=== PATIENT | female | born 1990 | race Caucasian/White ===

== ENCOUNTER 2016-07-11 19:35 | Emergency (ER) | payer MEDICAID, OTHER ==
[2016-07-11] MEDS ORDERED: MORPHINE SULFATE 5 MG/ML PFS IVP ONE (19:55)
[2016-07-11] MEDS ORDERED: ONDANSETRON HCL IV 4 MG/2 ML VIAL IVP ONE (19:55)
[2016-07-11] MEDS ORDERED: METHYLPREDNISOLONE PF 125MG/VIAL IVP STA (19:59)
[2016-07-11] MEDS ORDERED: KETOROLAC 30 MG/ML VIAL IVP ONE (19:59)
--- NOTE | 2016-07-11 20:00 | Emergency Department Record ---
History of Present Illness - General Chief Complaint: Back Pain/Injury Stated Complaint: LOWER BACK PAIN Time Seen by Provider: 07/11/16 19:48 Source: Patient Mode of Arrival: Ambulatory Limitations: No limitations - History of Present Illness Initial Comments: 25 yo female presents with lower back pain for about 3 days. The pain is mostly on the left and radiates down the leg. No weakness. No changes in bowel bladder changes. No numbness. No history of back surgery, fever, IVDA, cancer, immune suppression. She has been doing more lifting and bending lately. The pain is sharp and starts in the left glutteal area radiating down the mostly the left thigh. The pain is worse with standing. She tried other individuals medications without relief. No current PCP. MD Complaint: Back pain Onset/Timin -: Days(s) Similar Symptoms Previously: Yes Radiation: Left leg, Right leg Severity scale (1-10): 10 Quality: Sharp, Tingling Consistency: Constant, Getting worse Improves With: Supine Worsens With: Movement Context: Bending, Turning/twisting, While lifting Treatments Prior to Arrival: Cold therapy, Heat therapy, NSAIDS - Related Data Previous Rx's Medication Instructions Recorded Cyclobenzaprine HCl [Flexeril] 10 mg PO TID #15 tablet 07/11/16 Hydrocodone/Acetaminophen [Cade 1 tab PO Q6H PRN #15 tab 07/11/16 5mg/325mg] Methylprednisolone [Medrol Dose 0 mg PO UD #1 tab.ds.pk 07/11/16 Pack] Naproxen [Naprosyn] 500 mg PO Q12H #30 tab 07/11/16 Allergies Allergy/AdvReac Type Severity Reaction Status Date / Time No Known Drug Allergies Allergy Verified 02/04/16 22:19 Travel Screening - Travel/Exposure Within Last 30 Days Have you traveled within the last 30 days?: No - Travel Symptoms Symptom Screening: None Review of Systems Constitutional: Denies: Chills, Fever, Malaise, Weakness Eyes: Denies: Eye discharge ENT: Denies: Congestion, Throat pain Respiratory: Denies: Cough, Dyspnea Cardiovascular: Denies: Chest pain, Palpitations, Syncope Endocrine: Denies: Fatigue Gastrointestinal: Denies: Abdominal pain, Diarrhea, Nausea, Vomiting Genitourinary: Denies: Dysuria, Incontinence, Retention, Urgency Musculoskeletal: Reports: As per HPI, Back pain, Myalgia Skin: Denies: Bruising, Change in color, Rash Neurological: Denies: Headache Psychiatric: Denies: Anxiety Hematological/Lymphatic: Denies: Blood Clots, Easy bleeding, Easy bruising, Swollen glands Past Medical History - SOCIAL HISTORY Smoking Status: Never smoker - RESPIRATORY Hx Respiratory Disorders: No - CARDIOVASCULAR Hx Cardio Disorders: No - NEURO Hx Neuro Disorders: No - GI Hx GI Disorders: No - Hx Genitourinary Disorders: No - ENDOCRINE Hx Endocrine Disorders: No - MUSCULOSKELETAL Hx Musculoskeletal Disorders: No - PSYCH Hx Psych Problems: Yes Hx Anxiety: Yes Hx Depression: Yes - HEMATOLOGY/ONCOLOGY Hx Hematology/Oncology Disorders: No Family Medical History Any Significant Family History?: Yes Hx Liver Disease: Grandparents Physical Exam - General General Appearance: Alert, Oriented x3, Cooperative, No acute distress Limitations: No limitations - Head Head exam: Normal inspection - Eye Eye exam: Normal appearance, PERRL. negative: Conjunctival injection - ENT ENT exam: Normal exam - Neck Neck exam: Normal inspection, Full ROM. negative: Tenderness - Respiratory Respiratory exam: Normal lung sounds bilaterally. negative: Accessory muscle use, Decreased breath sounds, Prolonged expiratory, Respiratory distress, Rhonchi, Stridor, Wheezes - Cardiovascular Cardiovascular Exam: Regular rate, Normal rhythm, Normal heart sounds Peripheral Pulses: 2+: Radial (R), Radial (L) - GI/Abdominal GI/Abdominal exam: Soft. negative: Distended, Guarding, Rebound, Tenderness - Rectal Rectal exam: Deferred - exam: Deferred - Extremities Extremities exam: Normal inspection, Full ROM, Normal capillary refill. negative: Calf tenderness, Joint swelling, Pedal edema, Tenderness - Back Back exam: Reports: Normal inspection, Muscle spasm, Tenderness, Vertebral tenderness. Denies: CVA tenderness (R), CVA tenderness (L), Full ROM, Rash noted Image of Body Front/Back: 1 - tender to palpation in the left lower lumbar, no rash, swelling, redness or warmth. Negative bilateral straight leg, EHL intact bilateral, foot flexion and extension intact bilateral, knee flexion and extension intact bilateral - Neurological Neurological exam: Alert, Normal gait, Oriented X3, Reflexes normal (patellar and achilles symmetric and intact). negative: Altered, Motor sensory deficit - Psychiatric Psychiatric exam: Normal affect, Normal mood. negative: Agitated, Anxious - Skin Skin exam: Dry, Intact, Normal color, Warm Course Vital Signs 07/11/16 19:45 Temperature 98.4 F Pulse Rate [ 116 H Pulse Ox Probe] Respiratory 20 Rate Blood Pressure 137/113 [Left Arm] Pulse Ox 96 - Reevaluation(s) Reevaluation #1: History likely consistent with sciatica No weakness or sensory changes No changes to bowel or bladder function 07/11/16 20:04 Reevaluation #2: The UCG is negative Nitrite and LE negative. No WBC or Bacteria. 07/11/16 20:31 Reevaluation #3: On recheck the patient is feeling much improved We discussed follow up and reasons to return to the ED' She was referred to the [facility] 07/11/16 20:34 Disposition Disposition: Discharge Clinical Impression: Sciatica Qualifiers: Laterality: left Qualified Code(s): M54.32 - Sciatica, left side Disposition: Home, Self-Care Condition: (1) Good Instructions: Low Back Strain (ED), Sciatica (ED) Additional Instructions: Rest and avoid lifting and bending Return or seek medical attention if worse, fever, weak, numb or new concerns Prescriptions: Cyclobenzaprine HCl [Flexeril] 10 mg PO TID #15 tablet Methylprednisolone [Medrol Dose Pack] 0 mg PO UD #1 tab.ds.pk Naproxen [Naprosyn] 500 mg PO Q12H #30 tab.dr Hydrocodone/Acetaminophen [Cade 5mg/325mg] 1 tab PO Q6H PRN #15 tab PRN Reason: Pain - General Referrals: CARLOS MANUEL FARIAS M.D. [MEDICAL DOCTOR] - Forms: Patient Portal Access
[2016-07-11 20:12] LABS: URINE APPEARANCE CLEAR; URINE BILIRUBIN SMALL (NEGATIVE); URINE BLOOD TRACE-I (NEGATIVE); URINE COLOR YELLOW; URINE GLUCOSE (UA) NEGATIVE (NEGATIVE); URINE KETONE NEGATIVE (NEGATIVE); URINE LEUKOCYTE ESTERASE NEGATIVE (NEGATIVE); URINE NITRITE NEGATIVE (NEGATIVE); URINE PROTEIN TRACE (NEGATIVE)
[2016-07-11 20:19] LABS: HCG,QUALITATIVE URINE NEGATIVE (NEGATIVE); URINE BACTERIA FEW; URINE RBC 0 - 2 (NONE SEEN); URINE WBC 0 - 2 (0-2/hpf)
== END 2016-07-11 20:59 | disposition home or self-care (01) ==
LOC: ER 19:35
DX: M54.42 Lumbago with sciatica, left side (principal)
CPT/HCPCS: 99284 ×2; 96374; 96375; 81001; 81025; J1885; J2405; J2270; J2930

== ENCOUNTER 2017-07-18 22:13 | Emergency (ER) | payer MEDICAID ==
[2017-07-18] MEDS ORDERED: AZITHROMYCIN 500 MG TABLET PO ONE (22:26)
[2017-07-18] MEDS ORDERED: PREDNISONE 20 MG TAB PO ONE (22:26)
[2017-07-18] MEDS ORDERED: BENZONATATE 100 MG CAPSULE PO ONE (22:26)
--- NOTE | 2017-07-18 22:30 | Emergency Department Record ---
History of Present Illness - General Chief Complaint: Cough Stated Complaint: COUGH,PAIN WHEN BREATHING Time Seen by Provider: 07/18/17 22:20 Source: Patient Mode of Arrival: Ambulatory Limitations: No limitations - History of Present Illness Initial Comments: 26 yo female presents to ED for evaluation of intermittent cough symptoms for the past 1 month. Patient denies fever, sore throat, or history of asthma/COPD , patient denies health problems at her baseline. MD Complaint: Cough Onset/Timin -: Month(s) Severity: Moderate Quality: Aching Consistency: Intermittent Improves With: Nothing Worsens With: Deep breaths, Other (laying flat) Associated Symptoms: Denies other symptoms Treatments Prior to Arrival: None - Related Data Previous Rx's Medication Instructions Recorded Azithromycin [Zithromax] 250 mg PO DAILY #4 tab 07/18/17 Benzonatate [Tessalon] 2 cap PO Q8H PRN #20 cap 07/18/17 Prednisone [Prednisone 20Mg] 20 mg PO TID #12 tab 07/18/17 Allergies Allergy/AdvReac Type Severity Reaction Status Date / Time No Known Drug Allergies Allergy Verified 02/04/16 22:19 Travel Screening - Travel/Exposure Within Last 30 Days Have you traveled within the last 30 days?: No - Travel Symptoms Symptom Screening: None Review of Systems Constitutional: Denies: Chills, Fever, Malaise, Night sweats Eyes: Denies: Eye discharge, Eye pain ENT: Denies: Congestion, Ear pain, Epistaxis Respiratory: Reports: Cough. Denies: Dyspnea Cardiovascular: Denies: Chest pain, Dyspnea on exertion Endocrine: Denies: Fatigue, Heat or cold intolerance Gastrointestinal: Denies: Abdominal pain, Nausea, Vomiting Genitourinary: Denies: Incontinence, Retention Musculoskeletal: Denies: Arthralgia, Back pain Skin: Denies: Bruising, Change in color Neurological: Denies: Abnormal gait, Confusion, Headache, Seizure Psychiatric: Denies: Anxiety Hematological/Lymphatic: Denies: Anemia, Blood Clots Past Medical History - SOCIAL HISTORY Smoking Status: Never smoker Alcohol Use: Rare Drug Use: None - RESPIRATORY Hx Respiratory Disorders: No - CARDIOVASCULAR Hx Cardio Disorders: No - NEURO Hx Neuro Disorders: No - GI Hx GI Disorders: No - Hx Genitourinary Disorders: No - ENDOCRINE Hx Endocrine Disorders: No - MUSCULOSKELETAL Hx Musculoskeletal Disorders: No - PSYCH Hx Psych Problems: Yes Hx Anxiety: Yes Hx Depression: Yes Comment:: not currently (07/18) taking medication - HEMATOLOGY/ONCOLOGY Hx Hematology/Oncology Disorders: No Family Medical History Any Significant Family History?: No Hx Liver Disease: Grandparents Physical Exam - General General Appearance: Alert, Oriented x3, Cooperative, Mild distress Limitations: No limitations - Head Head exam: Atraumatic, Normocephalic, Normal inspection Head exam detail: negative: Abrasion, Contusion, Centeno's sign, General tenderness, Hematoma, Laceration - Eye Eye exam: Normal appearance. negative: Conjunctival injection, Periorbital swelling, Periorbital tenderness, Scleral icterus - ENT Ear exam: negative: Auricular hematoma, Auricular trauma Nasal Exam: negative: Active bleeding, Discharge, Dried blood, Foreign body Mouth exam: negative: Drooling, Laceration, Muffled voice, Tongue elevation - Neck Neck exam: Normal inspection. negative: Meningismus, Tenderness - Respiratory Respiratory exam: Normal lung sounds bilaterally, Other (Non-productive cough symptoms on examination). negative: Rales, Respiratory distress, Rhonchi, Stridor - Cardiovascular Cardiovascular Exam: Regular rate, Normal rhythm, Normal heart sounds - GI/Abdominal GI/Abdominal exam: Soft. negative: Rebound, Rigid, Tenderness - Rectal Rectal exam: Deferred - exam: Deferred - Extremities Extremities exam: Normal inspection. negative: Calf tenderness, Pedal edema, Tenderness - Back Back exam: Denies: CVA tenderness (R), CVA tenderness (L) - Neurological Neurological exam: Alert, Normal gait, Oriented X3 - Psychiatric Psychiatric exam: Normal affect, Normal mood - Skin Skin exam: Normal color. negative: Abrasion Type of lesion: negative: abrasion Course Vital Signs 07/18/17 22:21 Temperature 98.7 F Pulse Rate [ 86 Pulse Ox Probe] Respiratory 18 Rate Blood Pressure 145/102 [Left Arm] Pulse Ox 97 - Reevaluation(s) Reevaluation #1: 07/18/17 22:33 Patient's symptoms appear c/w bronchitis, will treat with Zithromax, Prednisone , and Tessalon Perles for her cough symptoms. Patient is otherwise well appearing and stable for discharge at this time. Disposition Disposition: Discharge Clinical Impression: Bronchitis Disposition: Home, Self-Care Condition: (2) Stable Instructions: Acute Bronchitis (ED) Additional Instructions: Return to ED if your symptoms worsen or if you have any concerns. Prednisone, Tessalon, and Zithromax as directed. Follow-up with your family doctor in 3-5 days as directed. Prescriptions: Azithromycin [Zithromax] 250 mg PO DAILY #4 tab Benzonatate [Tessalon] 2 cap PO Q8H PRN #20 cap PRN Reason: Cough Prednisone [Prednisone 20Mg] 20 mg PO TID #12 tab Forms: Patient Portal Access Time of Disposition: 22:29 Quality - Quality Measures Quality Measures: N/A - Blood Pressure Screening Does Patient Have Any of the Following: No Blood Pressure Classification: Hypertensive Reading Systolic Measurement: 145 Diastolic Measurement: 102 Screening for High Blood Pressure: < First Hypertensive BP, F/U Documented > [ G8950] First Hypertensive Follow-up Interventions: Referral to alternative/primary care provider.
== END 2017-07-18 22:41 | disposition home or self-care (01) ==
LOC: ER 22:13
DX: J20.9 Acute bronchitis, unspecified (principal)
CPT/HCPCS: 99282; J7512

== ENCOUNTER 2018-02-25 17:32 | Emergency (ER) | payer MEDICAID ==
--- NOTE | 2018-02-25 17:47 | Emergency Department Record ---
History of Present Illness - General Chief Complaint: Abdominal Pain Stated Complaint: RT LOWER ABDOMINAL PAIN Time Seen by Provider: 02/25/18 17:39 Source: Patient Mode of Arrival: Ambulatory Limitations: No limitations - History of Present Illness Initial Comments: The patient is here due to R flank pain off and on for 2 months that is now worse for the last 2 days. She has had intermittent nausea and vomiting but none today. She denies any lower AP, fever, chills, dysuria or any vaginal issues. The patient's only abdominal surgery was a . She states when she stands up and bends over the pain is worse and sometimes it hurts in her back. The patient also states eating does not make the pain better or worse and also denies any CP, SOB, or KYLAH. MD Complaint: Abdominal pain Onset/Timin -: Month(s) Location: R Flank Migration to: No migration Severity: Moderate Quality: Aching Consistency: Intermittent - Related Data Previous Rx's Medication Instructions Recorded Naproxen [Naprosyn] 500 mg PO BID #14 tablet. 02/25/18 Allergies Allergy/AdvReac Type Severity Reaction Status Date / Time No Known Drug Allergies Allergy Verified 02/25/18 17:41 Review of Systems Constitutional: Denies: Chills, Fever Eyes: Denies: Eye discharge ENT: Denies: Congestion Respiratory: Denies: Dyspnea Cardiovascular: Denies: Arrhythmia, Chest pain, Dyspnea on exertion Gastrointestinal: Reports: Abdominal pain, Nausea, Vomiting. Denies: Diarrhea Genitourinary: Denies: Dysuria Musculoskeletal: Denies: Arthralgia Past Medical History - SOCIAL HISTORY Smoking Status: Never smoker Drug Use: None - RESPIRATORY Hx Respiratory Disorders: No - CARDIOVASCULAR Hx Cardio Disorders: No - NEURO Hx Neuro Disorders: No - GI Hx GI Disorders: No - Hx Genitourinary Disorders: No - ENDOCRINE Hx Endocrine Disorders: No - MUSCULOSKELETAL Hx Musculoskeletal Disorders: No - PSYCH Hx Psych Problems: Yes Hx Anxiety: Yes Hx Depression: Yes Comment:: not currently (07/18) taking medication - HEMATOLOGY/ONCOLOGY Hx Hematology/Oncology Disorders: No Family Medical History Hx Liver Disease: Grandparents Physical Exam - General General Appearance: Alert, Oriented x3, Cooperative, No acute distress - Head Head exam: Atraumatic, Normocephalic, Normal inspection - Eye Eye exam: Normal appearance, PERRL - Neck Neck exam: Normal inspection, Full ROM. negative: Tenderness - Respiratory Respiratory exam: Normal lung sounds bilaterally. negative: Respiratory distress - Cardiovascular Cardiovascular Exam: Regular rate, Normal rhythm, Normal heart sounds - GI/Abdominal GI/Abdominal exam: Soft, Tenderness (There is mild tenderness to the R upper quad area only laterally. The abdomen is very soft.). negative: Guarding, Organomegaly, Pulsatile mass, Rebound, Rigid - Extremities Extremities exam: Normal inspection, Full ROM, Normal capillary refill. negative: Tenderness - Back Back exam: Reports: Normal inspection. Denies: Paraspinal tenderness, Vertebral tenderness Image of Body Front/Back: 1 - Area of pain and tenderness. - Neurological Neurological exam: Alert. negative: Motor sensory deficit Course - Reevaluation(s) Reevaluation #1: The patient is resting comfortably with no pain. I did discuss the lab and UA results that were normal. We will order an abdominal CT and if neg will have the patient follow up with a PCP for further evaluation. I also did discuss the need to see a PCP for her mildly elevated BP and she does agree to the plan. 02/25/18 18:33 Reevaluation #2: The patient is doing very well at this time. She is pain free and resting comfortably. I did again discuss the plan for Naprosyn for pain and F/U with her PCP later this week. 02/25/18 18:53 Medical Decision Making - Data Complexity MDM Data: Labs Ordered and/or Reviewed - Lab Data Result diagrams: 02/25/18 17:55 02/25/18 17:55 Disposition Disposition: Discharge Clinical Impression: Chronic flank pain Disposition: Home, Self-Care Condition: (2) Stable Instructions: Abdominal Pain (ED) Additional Instructions: Please take the Naprosyn for pain and please see a family doctor for further evaluation. Return to the ER for any worsening pain, fever, or vomiting. Prescriptions: Naproxen [Naprosyn] 500 mg PO BID #14 tablet.dr Forms: Patient Portal Access Time of Disposition: 18:36 Quality - Blood Pressure Screening Does Patient Have Any of the Following: No Blood Pressure Classification: Hypertensive Reading Systolic Measurement: 143 Diastolic Measurement: 106
[2018-02-25 18:06] LABS: BASO % 0.4 % (0-6); EOS % 1.1 % (0-6); GRAN % 60.1 % (47-80); HEMATOCRIT 43.9 % (35.0-47.0); HEMOGLOBIN 14.5 gm/dl (11.6-16.0); LYMPH % 28.7 % (16-45); MEAN CELL VOLUME 90.7 fl (81-97); MEAN PLATELET VOLUME 10.3 fl (7.4-10.4); MONO % 9.7 % (0-9); PLATELET COUNT 443 K/uL (130-400); RED BLOOD COUNT 4.84 M/uL (3.80-5.40); URINE BILIRUBIN NEGATIVE (NEGATIVE); URINE BLOOD NEGATIVE (NEGATIVE); URINE COLOR YELLOW; URINE GLUCOSE (UA) NEGATIVE (NEGATIVE); URINE KETONE NEGATIVE (NEGATIVE); URINE LEUKOCYTE ESTERASE NEGATIVE (NEGATIVE); URINE NITRITE NEGATIVE (NEGATIVE); URINE PROTEIN NEGATIVE (NEGATIVE); WHITE BLOOD COUNT W/O DIFF 10.7 K/uL (4.2-12.2)
[2018-02-25 18:07] LABS: URINE APPEARANCE SL CLOUDY
[2018-02-25 18:17] LABS: BLOOD UREA NITROGEN 10 mg/dL (6-20); CREATININE 0.8 mg/dL (0.5-0.9); EST GLOMERULAR FILTRATION RATE > 60 mL/min
[2018-02-25 18:18] LABS: TOTAL PROTEIN 7.8 g/dL (6.6-8.7)
[2018-02-25 18:20] LABS: GLUCOSE,RANDOM 100 mg/dL (74-109)
[2018-02-25 18:22] LABS: ALT/SGPT 22 U/L (<33); AST/SGOT 17 U/L (10.0-35.0)
[2018-02-25 18:23] LABS: ALBUMIN 4.6 g/dL (4.0-5.0); ALKALINE PHOSPHATASE 98 U/L (35-104)
[2018-02-25 18:25] LABS: BILIRUBIN,DIRECT < 0.2 mg/dL (0-0.3); HCG,QUALITATIVE URINE NEGATIVE (NEGATIVE)
[2018-02-25] MEDS ORDERED: KETOROLAC 30 MG/ML VIAL IVP ONE (18:25)
--- NOTE | 2018-02-25 19:53 | Emergency Department Record ---
History of Present Illness - General Chief Complaint: Abdominal Pain Stated Complaint: RT LOWER ABDOMINAL PAIN Time Seen by Provider: 02/25/18 17:39 Source: Patient Mode of Arrival: Ambulatory Limitations: No limitations - History of Present Illness MD Complaint: Abdominal pain Onset/Timin -: Month(s) Location: R Flank Migration to: No migration Severity: Moderate Severity scale (1-10): 8 Quality: Aching Consistency: Intermittent Improves With: Other Worsens With: Nothing Associated Symptoms: Denies other symptoms - Related Data LMP (females 10-50): 1 month ago Patient : No Previous Rx's Medication Instructions Recorded Naproxen [Naprosyn] 500 mg PO BID #14 tablet. 02/25/18 Allergies Allergy/AdvReac Type Severity Reaction Status Date / Time No Known Drug Allergies Allergy Verified 02/25/18 17:41 Travel Screening - Travel/Exposure Within Last 30 Days Have you traveled within the last 30 days?: No - Travel/Exposure Within Last Year Have you traveled outside the [place] in the last year?: No - Additonal Travel Details Have you been exposed to anyone with a communicable illness?: No - Travel Symptoms Symptom Screening: None Review of Systems Constitutional: Denies: Chills, Fever Eyes: Denies: Eye discharge ENT: Denies: Congestion Respiratory: Denies: Dyspnea Cardiovascular: Denies: Arrhythmia, Chest pain, Dyspnea on exertion Gastrointestinal: Reports: Abdominal pain, Nausea, Vomiting. Denies: Diarrhea Genitourinary: Denies: Dysuria Musculoskeletal: Denies: Arthralgia Past Medical History - SOCIAL HISTORY Smoking Status: Never smoker Drug Use: None - RESPIRATORY Hx Respiratory Disorders: No - CARDIOVASCULAR Hx Cardio Disorders: No - NEURO Hx Neuro Disorders: No - GI Hx GI Disorders: No - Hx Genitourinary Disorders: No - ENDOCRINE Hx Endocrine Disorders: No - MUSCULOSKELETAL Hx Musculoskeletal Disorders: No - PSYCH Hx Psych Problems: Yes Hx Anxiety: Yes Hx Depression: Yes Comment:: not currently (3/) taking medication - HEMATOLOGY/ONCOLOGY Hx Hematology/Oncology Disorders: No Family Medical History Hx Liver Disease: Grandparents Physical Exam - General Limitations: No limitations Course Vital Signs 02/25/18 02/25/18 17:42 18:30 Temperature 98.9 F Pulse Rate 97 H Pulse Rate [ 83 Pulse Ox Probe] Respiratory 20 18 Rate Blood Pressure 143/106 Blood Pressure 135/101 [Left Arm] Pulse Ox 97 96 - Reevaluation(s) Reevaluation #1: 02/25/18 19:51 CT Abdomen and Pelvis: No acute abnormality Appendix normal Small umbilical hernia Patient was updated on all results, reports that her pain symptoms are still present. Will have the patient return tomorrow morning for US imaging, instructed not to eat more than 6 hours before her US imaging. Patient appears stable for discharge at this time. Medical Decision Making - Lab Data Result diagrams: 02/25/18 17:55 02/25/18 17:55 Lab Results 02/25/18 02/25/18 02/25/18 Range/Units 17:55 17:55 17:55 WBC 10.7 (4.2-12.2) K/uL RBC 4.84 (3.80-5.40) M/uL Hgb 14.5 (11.6-16.0) gm/dl Hct 43.9 (35.0-47.0) % MCV 90.7 (81-97) fl MCH 30.0 (27-33) pg MCHC 33.0 (32-36) g/dl RDW 13.0 (11.5-14.5) % Plt Count 443 H (130-400) K/uL MPV 10.3 (7.4-10.4) fl Gran % 60.1 (47-80) % Lymphocytes % 28.7 (16-45) % Monocytes % 9.7 H (0-9) % Eosinophils % 1.1 (0-6) % Basophils % 0.4 (0-6) % Sodium 140 (136-145) mmol/L Potassium 3.8 (3.4-4.5) mmol/L Chloride 98 (98-107) mmol/L Carbon Dioxide 26.0 (22-29) mmol/L Anion Gap 16.0 (7-16) BUN 10 (6-20) mg/dL Creatinine 0.8 (0.5-0.9) mg/dL Estimated GFR > 60 mL/min Random Glucose 100 (74-109) mg/dL Calcium 9.4 (8.6-10.0) mg/dL Total Bilirubin 0.30 (0.2-1.0) mg/dL Direct Bilirubin < 0.2 (0-0.3) mg/dL AST 17 (10.0-35.0) U/L ALT 22 (<33) U/L Alkaline Phosphatase 98 (35-104) U/L Total Protein 7.8 (6.6-8.7) g/dL Albumin 4.6 (4.0-5.0) g/dL Urine Color Yellow Urine Appearance Sl cloudy Urine pH 7.5 (5.0-8.0) Ur Specific [place] 1.020 (1.002-1.030) Urine Protein Negative (NEGATIVE) Urine Glucose (UA) Negative (NEGATIVE) Urine Ketones Negative (NEGATIVE) Urine Blood Negative (NEGATIVE) Urine Nitrite Negative (NEGATIVE) Urine Bilirubin Negative (NEGATIVE) Urine Urobilinogen 1.0 (0.20 - 1.00) E.U./dL Ur Leukocyte Esterase Negative (NEGATIVE) Urine HCG, Qual Negative (NEGATIVE) Disposition Disposition: Discharge Clinical Impression: Chronic flank pain Disposition: Home, Self-Care Condition: (2) Stable Instructions: Abdominal Pain (ED) Additional Instructions: Please take the Naprosyn for pain and please see a family doctor for further evaluation. Return to the ER for any worsening pain, fever, or vomiting. Return tomorrow to the ED at 11:30 for an US examination at Noon. Prescriptions: Naproxen [Naprosyn] 500 mg PO BID #14 tablet.dr Forms: Patient Portal Access Time of Disposition: 19:53 Quality - Quality Measures Quality Measures: N/A - Blood Pressure Screening Does Patient Have Any of the Following: No Blood Pressure Classification: Hypertensive Reading Systolic Measurement: 143 Diastolic Measurement: 106 Screening for High Blood Pressure: < First Hypertensive BP, F/U Documented > [ G8950] First Hypertensive Follow-up Interventions: Referral to alternative/primary care provider.
== END 2018-02-25 20:04 | disposition home or self-care (01) ==
LOC: ER 17:32
DX: G89.29 Other chronic pain (principal); R10.31 Right lower quadrant pain; R11.2 Nausea with vomiting, unspecified; K42.9 Umbilical hernia without obstruction or gangrene
CPT/HCPCS: 99284 ×2; 96374; 85025; 80076; 80048; 81003; 81025; 74176; J1885

== ENCOUNTER 2018-02-26 14:43 | Emergency (ER) | payer MEDICAID ==
--- NOTE | 2018-02-26 15:20 | Emergency Department Record ---
History of Present Illness - General Chief Complaint: Recheck - Other Stated Complaint: ULTRA SOUND Time Seen by Provider: 02/26/18 15:13 Source: Patient, RN notes reviewed - History of Present Illness Initial Comments: sharp pain right upper quad pain and seen last night in the ED by Dr. Kowalski and asked to return for GB US. CT scan of abd last night negative. Today her abdominal is better but still hurts and was given naprosyn. Patient has not taken that because she is NPO for US and it said to take with food. Display Manager vomiting , No diarrhea and No dysuria. Pain is worse bending over and she helped her mom move recently with lots of lifting. Onset/Timin -: Days(s) Initial Visit For: Other Returns Today for: Persistent/worsening pain related to initial visit Symptoms Since Prior Visit: No new symptoms - Related Data Previous Rx's Medication Instructions Recorded Naproxen [Naprosyn] 500 mg PO BID #14 tablet. 02/25/18 Allergies Allergy/AdvReac Type Severity Reaction Status Date / Time No Known Drug Allergies Allergy Verified 02/26/18 14:52 Travel Screening - Travel/Exposure Within Last 30 Days Have you traveled within the last 30 days?: No - Travel/Exposure Within Last Year Have you traveled outside the [place] in the last year?: No - Additonal Travel Details Have you been exposed to anyone with a communicable illness?: No - Travel Symptoms Symptom Screening: None Review of Systems Reviewed: No additional complaints except as noted below Constitutional: Reports: As per HPI. Denies: Chills, Fever, Malaise, Night sweats, Weakness, Weight change Eyes: Reports: As per HPI. Denies: Eye discharge, Eye pain, Photophobia, Vision change ENT: Reports: As per HPI. Denies: Congestion, Dental pain, Ear pain, Epistaxis , Hearing loss, Throat pain Respiratory: Reports: As per HPI. Denies: Cough, Dyspnea, Hemoptysis, Stridor, Wheezes Cardiovascular: Reports: As per HPI. Denies: Arrhythmia, Chest pain, Dyspnea on exertion, Edema, Murmurs, Orthopnea, Palpitations, Paroxysmal nocturnal dyspnea, Rheumatic Fever, Syncope Endocrine: Reports: As per HPI. Denies: Fatigue, Heat or cold intolerance, Polydipsia, Polyuria Gastrointestinal: Reports: As per HPI. Denies: Abdominal pain, Constipation, Diarrhea, Hematemesis, Hematochezia, Melena, Nausea, Vomiting Genitourinary: Reports: As per HPI. Denies: Abnormal menses, Discharge, Dyspareunia, Dysuria, Frequency, Hematuria, Incontinence, Retention, Urgency Musculoskeletal: Reports: As per HPI, Back pain, Other (right flank pain). Denies: Arthralgia, Gout, Joint swelling, Myalgia, Neck pain Skin: Reports: As per HPI. Denies: Bruising, Change in color, Change in hair/ nails, Lesions, Pruritus, Rash Neurological: Reports: As per HPI. Denies: Abnormal gait, Confusion, Headache, Numbness, Paresthesias, Seizure, Tingling, Tremors, Vertigo, Weakness Psychiatric: Reports: As per HPI. Denies: Anxiety, Auditory hallucinations, Depression, Homicidal thoughts, Suicidal thoughts, Visual hallucinations Hematological/Lymphatic: Reports: As per HPI. Denies: Anemia, Blood Clots, Easy bleeding, Easy bruising, Swollen glands Past Medical History - SOCIAL HISTORY Smoking Status: Never smoker Alcohol Use: None Drug Use: None - RESPIRATORY Hx Respiratory Disorders: No - CARDIOVASCULAR Hx Cardio Disorders: No - NEURO Hx Neuro Disorders: No - GI Hx GI Disorders: No - Hx Genitourinary Disorders: No - ENDOCRINE Hx Endocrine Disorders: No - MUSCULOSKELETAL Hx Musculoskeletal Disorders: No - PSYCH Hx Psych Problems: Yes Hx Anxiety: Yes Hx Depression: Yes Comment:: not currently (07/18) taking medication - HEMATOLOGY/ONCOLOGY Hx Hematology/Oncology Disorders: No Family Medical History Any Significant Family History?: Yes Hx Liver Disease: Grandparents Physical Exam - General General Appearance: Alert, Oriented x3, Cooperative, No acute distress - Head Head exam: Normal inspection - Eye Eye exam: Normal appearance, PERRL Pupils: Normal accommodation - ENT ENT exam: Normal exam, Mucous membranes moist, Normal external ear exam, Normal orophraynx, TM's normal bilaterally Ear exam: Normal external inspection. negative: External canal tenderness Nasal Exam: Normal inspection. negative: Discharge, Sinus tenderness Mouth exam: Normal external inspection, Tongue normal Teeth exam: Normal inspection. negative: Dental caries Throat exam: Normal inspection. negative: Tonsillar erythema, Tonsillar exudate - Neck Neck exam: Normal inspection, Full ROM. negative: Tenderness - Respiratory Respiratory exam: Normal lung sounds bilaterally. negative: Respiratory distress - Cardiovascular Cardiovascular Exam: Regular rate, Normal rhythm, Normal heart sounds - GI/Abdominal GI/Abdominal exam: Soft, Normal bowel sounds. negative: Tenderness - Rectal Rectal exam: Deferred - exam: Deferred - Extremities Extremities exam: Normal inspection, Full ROM, Normal capillary refill. negative: Tenderness - Back Back exam: Reports: Normal inspection, Full ROM, Muscle spasm, Tenderness (pain is reproducible on palpation of the parvertebral muscle area T8to T12 right side ). Denies: Rash noted - Neurological Neurological exam: Alert, Normal gait, Oriented X3, Reflexes normal - Psychiatric Psychiatric exam: Normal affect, Normal mood - Skin Skin exam: Dry, Intact, Normal color, Warm Course Vital Signs 02/26/18 14:44 Temperature 98.2 F Pulse Rate 81 Respiratory 18 Rate Blood Pressure 146/87 Pulse Ox 98 - Reevaluation(s) Reevaluation #1: reviewed labs and CT scan from last night 02/26/18 16:17 Medical Decision Making - Data Complexity MDM Data: X-Ray Ordered and/or Reviewed (US of abd negative) Disposition Clinical Impression: Flank pain, acute Thoracic myofascial strain Qualifiers: Encounter type: initial encounter Qualified Code(s): S29.019A - Strain of muscle and tendon of unspecified wall of thorax, initial encounter Disposition: Home, Self-Care Condition: (1) Good Instructions: Thoracic Back Strain (ED) Additional Instructions: follow up with family DrMarychuy take naprosyn twice a day as prescribed last night Forms: Patient Portal Access Time of Disposition: 16:17 Quality - Quality Measures Quality Measures: N/A - Blood Pressure Screening Does Patient Have Any of the Following: No Blood Pressure Classification: Pre-Hypertensive BP Reading Systolic Measurement: 146 Diastolic Measurement: 87 Screening for High Blood Pressure: < Pre-Hypertensive BP, F/U Documented > [ G8950] Pre-Hypertensive Follow-up Interventions: Referral to alternative/primary care provider.
[2018-02-26] MEDS ORDERED: AMOXICILLIN/POTASSIUM CLAV 875MG/125MG TABLET PO ONE (15:30)
--- NOTE | 2018-03-01 21:14 | ULTRASOUND REPORT ---
EXAM: ULTRASOUND ABDOMEN, COMPLETE HISTORY: RIGHT UPPER QUADRANT PAIN. TECHNIQUE: Standard ultrasound imaging of the abdomen. COMPARISON: CT abdomen and pelvis without contrast on 02/25/18. FINDINGS: The visualized portions of the pancreatic body are unremarkable. The remainder is obscured by bowel gas. No aortic aneurysm is visualized. The liver is within normal limits for echogenicity. The right kidney is normal in size measuring 10 cm in length without hydronephrosis. The echogenicity of the right kidney is normal. No visualized gallstones or wall thickening. The common bile duct measures 3 mm in diameter. The spleen is normal in size measuring 11 cm in length. The left kidney is normal in size measuring 10.6 cm in length without hydronephrosis. The echogenicity of the left kidney is normal. IMPRESSION: NEGATIVE ABDOMINAL ULTRASOUND. JOB NUMBER: [id number] MTDD
== END 2018-02-26 16:45 | disposition home or self-care (01) ==
LOC: ER 14:43
DX: S29.019A Strain of muscle and tendon of unspecified wall of thorax, initial encounter (principal); R10.11 Right upper quadrant pain; X50.3XXA Overexertion from repetitive movements, initial encounter; X50.9XXA Other and unspecified overexertion or strenuous movements or postures, initial encounter; Y93.56 Activity, jumping rope
CPT/HCPCS: 76700; 99281

== ENCOUNTER 2018-11-18 11:21 | Emergency (ER) | payer MEDICAID ==
--- NOTE | 2018-11-18 11:46 | Emergency Department Record ---
History of Present Illness - General Chief Complaint: Cough Stated Complaint: COUGH Time Seen by Provider: 11/18/18 11:43 Source: Patient Mode of Arrival: Ambulatory Limitations: No limitations - History of Present Illness Initial Comments: 28 yo female presents with a concern about a cough. The onset was about two weeks ago. She has had some yellow sputum. She has had congestion as well. NO fever. No NVD. No rash. No leg pain or swelling. MD Complaint: Cough -: Week(s) (2) Severity: Moderate Quality: Aching Consistency: Constant Improves With: Nothing Worsens With: Other (coughing) Associated Symptoms: Cough Treatments Prior to Arrival: None - Related Data Previous Rx's Medication Instructions Recorded Azithromycin [Zithromax] 250 mg PO DAILY #6 tab 11/18/18 Benzonatate [Tessalon Perle] 100 mg PO Q8H #15 capsule 11/18/18 Cetirizine HCl 10 mg PO DAILY #30 tablet 11/18/18 Allergies Allergy/AdvReac Type Severity Reaction Status Date / Time No Known Drug Allergies Allergy Verified 02/26/18 14:52 Review of Systems Constitutional: Denies: Chills, Fever, Malaise, Weakness Eyes: Denies: Eye discharge ENT: Reports: Congestion. Denies: Ear pain, Epistaxis Respiratory: Reports: Cough. Denies: Dyspnea, Hemoptysis, Stridor, Wheezes Cardiovascular: Denies: Chest pain, Palpitations, Syncope Endocrine: Denies: Fatigue Gastrointestinal: Denies: Abdominal pain, Diarrhea, Nausea, Vomiting Genitourinary: Denies: Dysuria, Urgency Musculoskeletal: Denies: Arthralgia, Back pain, Joint swelling, Myalgia Skin: Denies: Bruising, Change in color, Rash Neurological: Denies: Headache Psychiatric: Denies: Anxiety Hematological/Lymphatic: Denies: Easy bleeding, Easy bruising Past Medical History - SOCIAL HISTORY Smoking Status: Never smoker Drug Use: None - RESPIRATORY Hx Respiratory Disorders: No - CARDIOVASCULAR Hx Cardio Disorders: No - NEURO Hx Neuro Disorders: No - GI Hx GI Disorders: No - Hx Genitourinary Disorders: No - ENDOCRINE Hx Endocrine Disorders: No - MUSCULOSKELETAL Hx Musculoskeletal Disorders: No - PSYCH Hx Psych Problems: Yes Hx Anxiety: Yes Hx Depression: Yes Comment:: not currently (3/) taking medication - HEMATOLOGY/ONCOLOGY Hx Hematology/Oncology Disorders: No Family Medical History Hx Liver Disease: Grandparents Physical Exam - General General Appearance: Alert, Oriented x3, Cooperative, No acute distress Limitations: No limitations - Head Head exam: Atraumatic - Eye Eye exam: Normal appearance, PERRL. negative: Conjunctival injection, Scleral icterus - ENT ENT exam: Normal exam, Mucous membranes moist, Normal orophraynx, TM's normal bilaterally. negative: Mucous membranes dry Ear exam: Normal external inspection Nasal Exam: Discharge, Other (mucosa swelling) Mouth exam: Normal external inspection Teeth exam: Normal inspection Throat exam: Normal inspection. negative: Tonsillar erythema, Tonsillomegaly, Tonsillar exudate, R peritonsillar mass, L peritonsillar mass - Neck Neck exam: Normal inspection. negative: Lymphadenopathy - Respiratory Respiratory exam: Normal lung sounds bilaterally. negative: Accessory muscle use, Chest wall tenderness, Decreased breath sounds, Prolonged expiratory, Respiratory distress, Rhonchi, Stridor, Wheezes - Cardiovascular Cardiovascular Exam: Regular rate, Normal rhythm, Normal heart sounds - GI/Abdominal GI/Abdominal exam: Soft. negative: Tenderness - Rectal Rectal exam: Deferred - exam: Deferred - Extremities Extremities exam: Normal inspection. negative: Tenderness - Back Back exam: Denies: CVA tenderness (R), CVA tenderness (L) - Neurological Neurological exam: Alert, Oriented X3 - Psychiatric Psychiatric exam: Normal affect, Normal mood. negative: Agitated, Anxious - Skin Skin exam: Dry, Intact, Normal color, Warm Course - Reevaluation(s) Reevaluation #1: The Vitals were reviewed. No acute changes. 11/18/18 11:54 11/18/18 12:02 We discussed possible allergy but with cough with yellow sputum over 2 weeks will treat. Disposition Disposition: Discharge Clinical Impression: Bronchitis Disposition: Home, Self-Care Condition: (1) Good Instructions: Acute Bronchitis (ED) Additional Instructions: Call your doctor for the next available follow up appointment Review this ER visit and the tests performed with your family doctor Return to the ER for a recheck if worse, any new concerns or questions Take the prescriptions provided as directed Prescriptions: Cetirizine HCl 10 mg PO DAILY #30 tablet Benzonatate [Tessalon Perle] 100 mg PO Q8H #15 capsule Azithromycin [Zithromax] 250 mg PO DAILY #6 tab Forms: Patient Portal Access Time of Disposition: :03 Quality - Quality Measures Quality Measures: N/A - Blood Pressure Screening Does Patient Have Any of the Following: No Blood Pressure Classification: Pre-Hypertensive BP Reading Systolic Measurement: 133 Diastolic Measurement: 86 Screening for High Blood Pressure: < Pre-Hypertensive BP, F/U Documented > [G8950] Pre-Hypertensive Follow-up Interventions: Referral to alternative/primary care provider.
[2018-11-18] MEDS ORDERED: DEXAMETHASONE SOD PHOSPHATE 10MG/ML VIAL PO ONE (12:02)
== END 2018-11-18 12:13 | disposition home or self-care (01) ==
LOC: ER 11:21
DX: J20.9 Acute bronchitis, unspecified (principal)
CPT/HCPCS: 99282

== ENCOUNTER 2019-05-12 13:20 | Emergency (ER) | payer MEDICAID ==
[2019-05-12 14:03] LABS: INFLUENZA A NEGATIVE (NEGATIVE); INFLUENZA B NEGATIVE (NEGATIVE)
--- NOTE | 2019-05-12 15:33 | Emergency Department Record ---
History of Present Illness - General Chief complaint: Flu Like Symptoms Stated complaint: LOLA Time Seen by Provider: 05/12/19 14:53 Source: Patient Mode of Arrival: Ambulatory Limitations: No limitations - History of Present Illness Initial comments: pt has had a cough, lola, body aches Onset/Timin -: Days(s) Location: Generalized Severity scale (1-10): 9 Quality: Aching Consistency: Constant Improves with: None Worsens with: None Associated Symptoms: Fever/chills, Shortness of breath, Other - [place] Coma Scale Eye Response: (4) Open spontaneously Motor Response: (6) Obeys commands Verbal Response: (5) Oriented [place] Total: 15 - Related Data Previous Rx's Medication Instructions Recorded Benzonatate [Tessalon] 1 cap PO Q8H PRN #14 cap 05/12/19 Ibuprofen [Motrin 600Mg] 600 mg PO Q6H #20 tablet 05/12/19 Allergies Allergy/AdvReac Type Severity Reaction Status Date / Time No Known Drug Allergies Allergy Verified 02/26/18 14:52 Travel Screening - Travel/Exposure Within Last 30 Days Have you traveled within the last 30 days?: No Review of Systems Reviewed: No additional complaints except as noted below Constitutional: Reports: As per HPI. Denies: Chills, Fever, Malaise, Night sweats, Weakness, Weight change Eyes: Reports: As per HPI. Denies: Eye discharge, Eye pain, Photophobia, Vision change ENT: Reports: As per HPI, Congestion. Denies: Dental pain, Ear pain, Epistaxis, Hearing loss, Throat pain Respiratory: Reports: As per HPI, Cough, Dyspnea. Denies: Hemoptysis, Stridor, Wheezes Cardiovascular: Reports: As per HPI. Denies: Arrhythmia, Chest pain, Dyspnea on exertion, Edema, Murmurs, Orthopnea, Palpitations, Paroxysmal nocturnal dyspnea, Rheumatic Fever, Syncope Endocrine: Reports: As per HPI. Denies: Fatigue, Heat or cold intolerance, Polydipsia, Polyuria Gastrointestinal: Reports: As per HPI. Denies: Abdominal pain, Constipation, Diarrhea, Hematemesis, Hematochezia, Melena, Nausea, Vomiting Genitourinary: Reports: As per HPI. Denies: Abnormal menses, Discharge, Dyspareunia, Dysuria, Frequency, Hematuria, Incontinence, Retention, Urgency Musculoskeletal: Reports: As per HPI. Denies: Arthralgia, Back pain, Gout, Joint swelling, Myalgia, Neck pain Skin: Reports: As per HPI. Denies: Bruising, Change in color, Change in hair/nails, Lesions, Pruritus, Rash Neurological: Reports: As per HPI. Denies: Abnormal gait, Confusion, Headache, Numbness, Paresthesias, Seizure, Tingling, Tremors, Vertigo, Weakness Psychiatric: Reports: As per HPI. Denies: Anxiety, Auditory hallucinations, Depression, Homicidal thoughts, Suicidal thoughts, Visual hallucinations Hematological/Lymphatic: Reports: As per HPI. Denies: Anemia, Blood Clots, Easy bleeding, Easy bruising, Swollen glands Past Medical History - SOCIAL HISTORY Smoking Status: Never smoker - RESPIRATORY Hx Respiratory Disorders: No - CARDIOVASCULAR Hx Cardio Disorders: No - NEURO Hx Neuro Disorders: No - GI Hx GI Disorders: No - Hx Genitourinary Disorders: No - ENDOCRINE Hx Endocrine Disorders: No - MUSCULOSKELETAL Hx Musculoskeletal Disorders: No - PSYCH Hx Psych Problems: Yes Hx Anxiety: Yes Hx Depression: Yes Comment:: not currently (07/18) taking medication - HEMATOLOGY/ONCOLOGY Hx Hematology/Oncology Disorders: No Family Medical History Any Significant Family History?: Yes Hx Liver Disease: Grandparents Physical Exam - General General Appearance: Alert, Oriented x3, Cooperative, Mild distress - Head Head exam: Normal inspection - Eye Eye exam: Normal appearance, PERRL, EOMI Pupils: Normal accommodation - ENT ENT exam: Normal exam, Mucous membranes moist, Normal external ear exam, Normal orophraynx Ear exam: Normal external inspection. negative: External canal tenderness Nasal Exam: Normal inspection. negative: Discharge, Sinus tenderness Mouth exam: Normal external inspection, Tongue normal Teeth exam: Normal inspection. negative: Dental caries Throat exam: Normal inspection. negative: Tonsillar erythema, Tonsillar exudate - Neck Neck exam: Normal inspection, Full ROM. negative: Tenderness - Respiratory Respiratory exam: Normal lung sounds bilaterally. negative: Respiratory distress - Cardiovascular Cardiovascular Exam: Normal rhythm, Normal heart sounds, Tachycardia - GI/Abdominal GI/Abdominal exam: Soft, Normal bowel sounds. negative: Tenderness - Rectal Rectal exam: Deferred - exam: Deferred - Extremities Extremities exam: Normal inspection, Full ROM, Normal capillary refill. negative: Tenderness - Back Back exam: Reports: Normal inspection, Full ROM. Denies: Muscle spasm, Rash noted, Tenderness - Neurological Neurological exam: Alert, CN II-XII intact, Normal gait, Oriented X3 - Psychiatric Psychiatric exam: Normal affect, Normal mood - Skin Skin exam: Dry, Intact, Normal color, Warm Course Vital Signs 05/12/19 13:37 Temperature 99.5 F Pulse Rate 124 H Respiratory 20 Rate Blood Pressure 125/82 Pulse Ox 95 - Reevaluation(s) Reevaluation #1: 05/12/19 16:24 cxr neg for pneumonia. pos for cardiomegaly possible Medical Decision Making - Lab Data Lab Results 05/12/19 05/12/19 Range/Units 13:40 15:13 Influenza Type A Ag Negative (NEGATIVE) Influenza Type B Ag Negative (NEGATIVE) Group A Strep Screen Negative (NEGATIVE) Disposition Disposition: Discharge Clinical Impression: Acute viral syndrome Disposition: Home, Self-Care Condition: (1) Good Instructions: Viral Syndrome (ED) Additional Instructions: follow up with family doctor. have echo of heart. return sooner if worse. Prescriptions: Ibuprofen [Motrin 600Mg] 600 mg PO Q6H #20 tablet Benzonatate [Tessalon] 1 cap PO Q8H PRN #14 cap PRN Reason: Cough Forms: Patient Portal Access Quality - Quality Measures Quality Measures: N/A - Blood Pressure Screening Does Patient Have Any of the Following: No Blood Pressure Classification: Pre-Hypertensive BP Reading Systolic Measurement: 125 Diastolic Measurement: 82 Screening for High Blood Pressure: < Pre-Hypertensive BP, F/U Documented > [G895 0] Pre-Hypertensive Follow-up Interventions: Follow-up with rescreen every year.
[2019-05-12] MEDS ORDERED: IBUPROFEN 400 MG TABLET PO ONE (15:35)
--- NOTE | 2019-05-12 15:51 | RADIOLOGY REPORT ---
EXAMINATION: Two View Chest Radiographs EXAM DATE: 05/12/2019 3:37 PM TECHNIQUE: Frontal and lateral views INDICATION: cough COMPARISON: None ENCOUNTER: Not applicable FINDINGS: Cardiac size mildly enlarged. No evident acute consolidation. No effusions. No pneumothorax. Bones un remarkable. IMPRESSION: Mildly enlarged cardiac silhouette. No evident acute consolidation. Recommend follow-up if symptoms persist or progress. >> Dictated by: Mukund Pickard MD on 05/12/2019 3:47 PM. .
== END 2019-05-12 16:35 | disposition home or self-care (01) ==
LOC: ER 13:20
DX: B34.9 Viral infection, unspecified (principal); R05 Cough
CPT/HCPCS: 71046; 87400; 87880; 99283